=== PATIENT | male | born 1995 | race Caucasian/White ===

== ENCOUNTER 2017-07-15 17:46 | Emergency (ER) | payer OTHER ==
[2017-07-15 18:00] VITALS: TEMP 98.9
[2017-07-15] MEDS ORDERED: TDAP Vaccine 0.5 mL Syr IM ONE (18:15)
[2017-07-15] MEDS ORDERED: Oxycodone/Acetaminophen 5/325 mg Tab PO STA (18:15)
[2017-07-15] MEDS ORDERED: Ciprofloxacin 0.3% OPTH SOLN OS STA (18:15)
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
[2017-07-15] MEDS ORDERED: Erythromycin 0.5% Ophth Oint 1 APPLIC/3.5 G OU ONE (19:33)
[2017-07-15 20:08] VITALS: BP 136/73; PULSE 87; RESP 18
[2017-07-15 20:33] VITALS: O2SAT 100
== END 2017-07-15 20:07 | disposition home or self-care (01) ==
LOC: MERGE 17:46 → ED 17:46
DX: S05.02XA Injury of conjunctiva and corneal abrasion without foreign body, left eye, initial encounter (principal); V49.59XA Passenger injured in collision with other motor vehicles in traffic accident, initial encounter; Y92.410 Unspecified street and highway as the place of occurrence of the external cause; Z23 Encounter for immunization